=== PATIENT | female | born 1930 | race Caucasian/White ===

== ENCOUNTER 2016-11-15 14:06 | Emergency (ER) | payer MEDICARE, BC ==
[2016-11-15] MEDS ORDERED: SODIUM CHLORIDE 0.9% 500 ML IV STA (14:18)
[2016-11-15] MEDS ORDERED: SODIUM CHLORIDE 0.9% 1,000 ML IV STA (14:18)
--- NOTE | 2016-11-15 14:22 | ED ---
Dizziness HPI - General Source: patient, family, EMS, RN notes reviewed Mode of arrival: EMS - History of Present Illness MD Complaint: dizziness, difficulty walking <Chaka Gandara - Last Filed: 11/15/16 16:54> <Sean Pedraza - Last Filed: 11/15/16 19:50> - General Stated Complaint: multiple falls Time Seen by Provider: 11/15/16 14:16 - History of Present Illness Initial Comments: This 86-year-old female who normally uses a walker walk who fell prior to admission. She is actually had 2 falls last 2 days. She currently had tingling in her walker and did fall. Flush mother passed out per family EMS she did not. She denies any pain at this time fevers chills or sweats family believes she may be dehydrated. Per EMS her glucose was 201 neuro exam was unremarkable. No symptoms cough phlegm production or dysuria. (Chaka Gandara) - Related Data Home Medications Medication Instructions Recorded Confirmed Atorvastatin [Lipitor] 20 mg PO HS 11/15/16 11/15/16 FLUoxetine HCL [PROzac] 10 mg PO DAILY 11/15/16 11/15/16 LORazepam [Ativan] 0.5 mg PO Q6H PRN 11/15/16 11/15/16 Allergies Allergy/AdvReac Type Severity Reaction Status Date / Time No Known Allergies Allergy Verified 11/15/16 15:14 Review of Systems ROS Other: All systems not noted in ROS Statement are negative. <Chaka Gandara - Last Filed: 11/15/16 16:54> ROS Other: All systems not noted in ROS Statement are negative. <Sean Pedraza - Last Filed: 11/15/16 19:50> ROS Statement: Those systems with pertinent positive or pertinent negative responses have been documented in the HPI. General Exam General appearance: alert, in no apparent distress Head exam: Present: atraumatic, normocephalic, normal inspection Eye exam: Present: normal appearance, PERRL, EOMI. Absent: scleral icterus, conjunctival injection, periorbital swelling ENT exam: Present: mucous membranes dry Neck exam: Present: normal inspection. Absent: tenderness, meningismus, lymphadenopathy Respiratory exam: Present: normal lung sounds bilaterally. Absent: respiratory distress, wheezes, rales, rhonchi, stridor Cardiovascular Exam: Present: regular rate, normal rhythm, normal heart sounds. Absent: systolic murmur, diastolic murmur, rubs, gallop, clicks GI/Abdominal exam: Present: soft, normal bowel sounds. Absent: distended, tenderness, guarding, rebound, rigid Extremities exam: Present: normal inspection, full ROM, normal capillary refill. Absent: tenderness, pedal edema, joint swelling, calf tenderness Back exam: Present: normal inspection Neurological exam: Present: alert, oriented X3, CN II-XII intact Psychiatric exam: Present: normal affect, normal mood Skin exam: Present: warm, dry, intact, normal color. Absent: rash <Chaka Gandara - Last Filed: 11/15/16 16:54> General appearance: alert, in no apparent distress Head exam: Present: atraumatic, normocephalic, normal inspection Eye exam: Present: normal appearance, PERRL, EOMI. Absent: scleral icterus, conjunctival injection, periorbital swelling ENT exam: Present: normal exam, mucous membranes moist Neck exam: Present: normal inspection. Absent: tenderness, meningismus, lymphadenopathy Respiratory exam: Present: normal lung sounds bilaterally. Absent: respiratory distress, wheezes, rales, rhonchi, stridor Cardiovascular Exam: Present: regular rate, normal rhythm, normal heart sounds. Absent: systolic murmur, diastolic murmur, rubs, gallop, clicks GI/Abdominal exam: Present: soft, normal bowel sounds. Absent: distended, tenderness, guarding, rebound, rigid Extremities exam: Present: normal inspection, full ROM, normal capillary refill. Absent: tenderness, pedal edema, joint swelling, calf tenderness Back exam: Present: normal inspection Neurological exam: Present: alert, oriented X3, CN II-XII intact Psychiatric exam: Present: normal affect, normal mood Skin exam: Present: warm, dry, intact, normal color. Absent: rash <Sean Pedraza - Last Filed: 11/15/16 19:50> - General Exam Comments Initial Comments: This is a well-developed well-nourished awake alert oriented 3 female (Juliocesar Chaka) Course <Chaka Gandara - Last Filed: 11/15/16 16:54> <Sean Pedraza - Last Filed: 11/15/16 19:50> Vital Signs 11/15/16 11/15/16 11/15/16 14:20 15:46 17:10 Temperature 98.2 F Pulse Rate 72 76 79 Respiratory 18 20 16 Rate Blood Pressure 106/53 172/77 150/65 O2 Sat by Pulse 98 97 98 Oximetry - Reevaluation(s) Reevaluation #1: 11/15/16 16:52 I did a long discussion with the patient and family regarding findings. I did discuss case with family members were concerned the patient is depressed and wants to all time also she has been acting paranoid which is new behavior for her. Family is requesting psychiatric evaluation. This is pending at this time. (Chaka Gandara) Reevaluation #2: 11/15/16 16:54 The patient's care will be endorsed to Dr. Pedraza who will make final disposition (Chaka Gandara) Reevaluation #3: 11/15/16 19:49 Patient medically cleared for evaluation by psychiatry (Sean Pedraza) EKG Findings - EKG Results: EKG: interpreted by ERMD, sinus rhythm (EKG shows a sinus rhythm of 72 NV interval 194 QRS duration 88 QT since QTC of 44/442 low-voltage, nonspecific inferior configuration.) <Chaka Gandara - Last Filed: 11/15/16 16:54> Medical Decision Making - Lab Data Result diagrams: 11/15/16 13:15 11/15/16 13:15 <Cahka Gandara - Last Filed: 11/15/16 16:54> - Lab Data Result diagrams: 11/15/16 13:15 11/15/16 13:15 - Radiology Data Radiology results: report reviewed (CT brain is negative for acute disease), image reviewed <Sean Pedraza - Last Filed: 11/15/16 19:50> - Medical Decision Making A Serafino to ER for evaluation. Patient was brought into ER for evaluation of multiple falls etc. Patient was requesting psychiatric discharge psychiatric evaluation at time of discharge. Patient has been seen by psychiatry, is not homicidal or suicidal, will be discharged home (Sean Pedraza) - Lab Data Lab Results 11/15/16 11/15/16 11/15/16 Range/Units 13:15 13:15 13:15 WBC 8.9 (3.8-10.6) k/uL RBC 4.16 (3.80-5.40) m/uL Hgb 12.9 (11.4-16.0) gm/dL Hct 38.0 (34.0-46.0) % MCV 91.4 (80.0-100.0) fL MCH 30.9 (25.0-35.0) pg MCHC 33.8 (31.0-37.0) g/dL RDW 13.1 (11.5-15.5) % Plt Count 361 (150-450) k/uL Neutrophils % 73 % Lymphocytes % 17 % Monocytes % 7 % Eosinophils % 1 % Basophils % 1 % Neutrophils # 6.5 (1.3-7.7) k/uL Lymphocytes # 1.5 (1.0-4.8) k/uL Monocytes # 0.7 (0-1.0) k/uL Eosinophils # 0.1 (0-0.7) k/uL Basophils # 0.1 (0-0.2) k/uL PT (9.0-12.0) sec INR (<1.1) APTT (22.0-30.0) sec Sodium 138 (137-145) mmol/L Potassium 4.2 (3.5-5.1) mmol/L Chloride 103 (98-107) mmol/L Carbon Dioxide 23 (22-30) mmol/L Anion Gap 12 mmol/L BUN 11 (7-17) mg/dL Creatinine 0.60 (0.52-1.04) mg/dL Est GFR (MDRD) Af Amer >60 (>60 ml/min/1.73 sqM) Est GFR (MDRD) Non-Af >60 (>60 ml/min/1.73 sqM) Glucose 155 H (74-99) mg/dL Calcium 9.7 (8.4-10.2) mg/dL Magnesium 2.0 (1.6-2.3) mg/dL Total Bilirubin 0.7 (0.2-1.3) mg/dL AST 40 H (14-36) U/L ALT 70 H (9-52) U/L Alkaline Phosphatase 272 H (38-126) U/L Ammonia (<30) umol/L Total Creatine Kinase 27 L (30-135) U/L CK-MB (CK-2) 0.5 (0.0-2.4) ng/mL CK-MB (CK-2) Rel Index 1.9 Troponin I <0.012 (0.000-0.034) ng/mL Total Protein 6.7 (6.3-8.2) g/dL Albumin 3.8 (3.5-5.0) g/dL Amylase (30-110) U/L Lipase (23-300) U/L Urine Color Urine Appearance (Clear) Urine pH (5.0-8.0) Ur Specific [place] (1.001-1.035) Urine Protein (Negative) Urine Glucose (UA) (Negative) Urine Ketones (Negative) Urine Blood (Negative) Urine Nitrite (Negative) Urine Bilirubin (Negative) Urine Urobilinogen (<2.0) mg/dL Ur Leukocyte Esterase (Negative) 11/15/16 11/15/16 11/15/16 Range/Units 13:15 13:15 15:36 WBC (3.8-10.6) k/uL RBC (3.80-5.40) m/uL Hgb (11.4-16.0) gm/dL Hct (34.0-46.0) % MCV (80.0-100.0) fL MCH (25.0-35.0) pg MCHC (31.0-37.0) g/dL RDW (11.5-15.5) % Plt Count (150-450) k/uL Neutrophils % % Lymphocytes % % Monocytes % % Eosinophils % % Basophils % % Neutrophils # (1.3-7.7) k/uL Lymphocytes # (1.0-4.8) k/uL Monocytes # (0-1.0) k/uL Eosinophils # (0-0.7) k/uL Basophils # (0-0.2) k/uL PT 10.3 (9.0-12.0) sec INR 1.0 (<1.1) APTT 23.6 (22.0-30.0) sec Sodium (137-145) mmol/L Potassium (3.5-5.1) mmol/L Chloride (98-107) mmol/L Carbon Dioxide (22-30) mmol/L Anion Gap mmol/L BUN (7-17) mg/dL Creatinine (0.52-1.04) mg/dL Est GFR (MDRD) Af Amer (>60 ml/min/1.73 sqM) Est GFR (MDRD) Non-Af (>60 ml/min/1.73 sqM) Glucose (74-99) mg/dL Calcium (8.4-10.2) mg/dL Magnesium (1.6-2.3) mg/dL Total Bilirubin (0.2-1.3) mg/dL AST (14-36) U/L ALT (9-52) U/L Alkaline Phosphatase (38-126) U/L Ammonia (<30) umol/L Total Creatine Kinase (30-135) U/L CK-MB (CK-2) (0.0-2.4) ng/mL CK-MB (CK-2) Rel Index Troponin I (0.000-0.034) ng/mL Total Protein (6.3-8.2) g/dL Albumin (3.5-5.0) g/dL Amylase 41 (30-110) U/L Lipase 128 (23-300) U/L Urine Color Light Yellow Urine Appearance Clear (Clear) Urine pH 7.0 (5.0-8.0) Ur Specific [place] 1.006 (1.001-1.035) Urine Protein Negative (Negative) Urine Glucose (UA) Negative (Negative) Urine Ketones Negative (Negative) Urine Blood Negative (Negative) Urine Nitrite Negative (Negative) Urine Bilirubin Negative (Negative) Urine Urobilinogen <2.0 (<2.0) mg/dL Ur Leukocyte Esterase Negative (Negative) 11/15/16 Range/Units 17:13 WBC (3.8-10.6) k/uL RBC (3.80-5.40) m/uL Hgb (11.4-16.0) gm/dL Hct (34.0-46.0) % MCV (80.0-100.0) fL MCH (25.0-35.0) pg MCHC (31.0-37.0) g/dL RDW (11.5-15.5) % Plt Count (150-450) k/uL Neutrophils % % Lymphocytes % % Monocytes % % Eosinophils % % Basophils % % Neutrophils # (1.3-7.7) k/uL Lymphocytes # (1.0-4.8) k/uL Monocytes # (0-1.0) k/uL Eosinophils # (0-0.7) k/uL Basophils # (0-0.2) k/uL PT (9.0-12.0) sec INR (<1.1) APTT (22.0-30.0) sec Sodium (137-145) mmol/L Potassium (3.5-5.1) mmol/L Chloride (98-107) mmol/L Carbon Dioxide (22-30) mmol/L Anion Gap mmol/L BUN (7-17) mg/dL Creatinine (0.52-1.04) mg/dL Est GFR (MDRD) Af Amer (>60 ml/min/1.73 sqM) Est GFR (MDRD) Non-Af (>60 ml/min/1.73 sqM) Glucose (74-99) mg/dL Calcium (8.4-10.2) mg/dL Magnesium (1.6-2.3) mg/dL Total Bilirubin (0.2-1.3) mg/dL AST (14-36) U/L ALT (9-52) U/L Alkaline Phosphatase (38-126) U/L Ammonia <9 (<30) umol/L Total Creatine Kinase (30-135) U/L CK-MB (CK-2) (0.0-2.4) ng/mL CK-MB (CK-2) Rel Index Troponin I (0.000-0.034) ng/mL Total Protein (6.3-8.2) g/dL Albumin (3.5-5.0) g/dL Amylase (30-110) U/L Lipase (23-300) U/L Urine Color Urine Appearance (Clear) Urine pH (5.0-8.0) Ur Specific [place] (1.001-1.035) Urine Protein (Negative) Urine Glucose (UA) (Negative) Urine Ketones (Negative) Urine Blood (Negative) Urine Nitrite (Negative) Urine Bilirubin (Negative) Urine Urobilinogen (<2.0) mg/dL Ur Leukocyte Esterase (Negative) Disposition <Chaka Gandara - Last Filed: 11/15/16 16:54> <Sean Pedraza - Last Filed: 11/15/16 19:50> Clinical Impression: Falls, Depression Disposition: ADMITTED IP TO THIS HOSP Condition: Fair Instructions: Depression (ED), Fall Prevention for Older Adults (ED) Referrals: Neida Smith MD [Primary Care Provider] - 1-2 days
--- NOTE | 2016-11-15 14:38 | XR ---
EXAMINATION TYPE: XR chest 2V DATE OF EXAM: 11/15/2016 COMPARISON: NONE HISTORY: Shortness of breath TECHNIQUE: Frontal and lateral views of the chest are obtained. FINDINGS: Scattered senescent parenchymal changes noted. Hyperinflation compatible with COPD. No evidence for infiltrate. No evidence for atelectasis. Heart size is stable. Mediastinal structures are stable and grossly unremarkable. No evidence for hilar prominence. Degenerative changes dorsal spine. IMPRESSION: 1. No evidence for acute pulmonary disease.
[2016-11-15 14:42] LABS: Basophils # (A) 0.1 k/uL (0-0.2); Basophils % (A) 1 %; CH 31.9; Eosinophils # (A) 0.1 k/uL (0-0.7); Eosinophils % (A) 1 %; HDW 2.37; HGB 12.9 gm/dL (11.4-16.0); Luc # (Auto) 0.16; Luc % (Auto) 2; Lymphocytes # (A) 1.5 k/uL (1.0-4.8); Lymphocytes % (A) 17 %; MCH 30.9 pg (25.0-35.0); MCHC 33.8 g/dL (31.0-37.0); MCV 91.4 fL (80.0-100.0); Mean Platelet Volume 7.8; Monocytes # (A) 0.7 k/uL (0-1.0); Monocytes % (A) 7 %; Neutrophils # (A) 6.5 k/uL (1.3-7.7); Neutrophils % (A) 73 %; RBC 4.16 m/uL (3.80-5.40); RDW 13.1 % (11.5-15.5); WBC 8.9 k/uL (3.8-10.6); WBC (Perox) 8.36
[2016-11-15 14:51] LABS: ALT 70 U/L (9-52); AST 40 U/L (14-36); Alkaline Phosphatase 272 U/L (38-126); Anion Gap 12 mmol/L; Blood Urea Nitrogen 11 mg/dL (7-17); Calcium 9.7 mg/dL (8.4-10.2); Carbon Dioxide 23 mmol/L (22-30); Chloride 103 mmol/L (98-107); Glucose 155 mg/dL (74-99); Non-African American GFR(MDRD) >60 (>60 ml/min/1.73 sqM); Potassium 4.2 mmol/L (3.5-5.1); Sodium 138 mmol/L (137-145); Total Bilirubin 0.7 mg/dL (0.2-1.3); Total Protein 6.7 g/dL (6.3-8.2)
[2016-11-15 14:59] LABS: Partial Thromboplastin Time 23.6 sec (22.0-30.0); Prothrombin Time 10.3 sec (9.0-12.0)
[2016-11-15 15:01] LABS: Creatine Kinase 27 U/L (30-135)
[2016-11-15 15:14] LABS: Creatine Kinase MB 0.5 ng/mL (0.0-2.4); Troponin I <0.012 ng/mL (0.000-0.034)
[2016-11-15 15:52] LABS: Appearance,Urine Clear (Clear); Bilirubin,Urine Negative (Negative); Glucose,Urine (UA) Negative (Negative); Ketones,Urine Negative (Negative); Leukocyte Esterase,Urine Negative (Negative); Nitrite,Urine Negative (Negative); Protein,Urine Negative (Negative); Specific Gravity,Urine 1.006 (1.001-1.035); UA Billing (MACRO vs. MICRO) CHEM; Urobilinogen,Urine <2.0 mg/dL (<2.0)
[2016-11-15 15:56] LABS: Amylase 41 U/L (30-110)
[2016-11-15 17:12] VITALS: RESP 16
--- NOTE | 2016-11-15 17:52 | CT ---
EXAMINATION TYPE: CT brain wo con DATE OF EXAM: 11/15/2016 COMPARISON: NONE HISTORY: Patient complains of recent falls. CT DLP: 782.6 mGycm Automated exposure control for dose reduction was used. FINDINGS: There is cerebral cortical atrophy. There is patchy hypodensity in the periventricular white matter. There is hypodensity in the white matter and aiken matter in particular in the right frontal lobe. Doroteo varium is intact. There is no evidence of intracranial hemorrhage. IMPRESSION: CEREBRAL ATROPHY AND CHRONIC SMALL VESSEL ISCHEMIA. OLD SMALL RIGHT POSTERIOR FRONTAL LOBE CORTICAL I NFARCT. NO ACUTE INTRACRANIAL ABNORMALITY.
[2016-11-15 21:20] VITALS: BP 168/70; PULSE 80; TEMP 98.5
== END 2016-11-15 21:19 | disposition home or self-care (01) ==
LOC: EC 14:06
DX: F32.9 Major depressive disorder, single episode, unspecified (principal); R42 Dizziness and giddiness; R26.2 Difficulty in walking, not elsewhere classified; R20.2 Paresthesia of skin; Z79.899 Other long term (current) drug therapy; W18.30XA Fall on same level, unspecified, initial encounter
CPT/HCPCS: 36415; 70450; 71020; 80053; 81003; 82140; 82150; 82550; 82553; 83690; 83735; 84484; 85025; 85610; 85730; 93005; 96360; 96361; 99285

== ENCOUNTER 2017-12-22 12:28 | Emergency (ER) | payer MEDICARE, BC ==
[2017-12-22 12:44] VITALS: RESP 18
--- NOTE | 2017-12-22 13:05 | ED ---
General Adult HPI - General Chief complaint: Fall Stated complaint: Fall Time Seen by Provider: 12/22/17 12:31 Source: patient, EMS, RN notes reviewed Mode of arrival: EMS Limitations: no limitations - History of Present Illness Initial comments: Patient 87-year-old female presented to the emergency room today by EMS, the chief complaint of a fall that occurred last night. Patient does admit that she was walking back into her apartment. She states she did not have her walker at the time and she lost her balance falling down hitting left side of her head. She states she fell on carpet. Does admit to some bruising above the left eye. She states it was no loss of consciousness. She does admit to some mild neck pain today with a headache. Denies any other complaints. Patient denies any recent fever, chills, shortness of breath, chest pain, back pain, abdominal pain, nausea or vomiting, constipation or diarrhea, headaches or visual changes, or any other complaints. - Related Data Home Medications Medication Instructions Recorded Confirmed Atorvastatin [Lipitor] 20 mg PO HS 11/15/16 11/15/16 FLUoxetine HCL [PROzac] 10 mg PO DAILY 11/15/16 11/15/16 LORazepam [Ativan] 0.5 mg PO Q6H PRN 11/15/16 11/15/16 Allergies Allergy/AdvReac Type Severity Reaction Status Date / Time No Known Allergies Allergy Verified 12/22/17 12:44 Review of Systems ROS Statement: Those systems with pertinent positive or pertinent negative responses have been documented in the HPI. ROS Other: All systems not noted in ROS Statement are negative. Past Medical History Past Medical History: Dementia Additional Past Medical History / Comment(s): Stroke History of Any Multi-Drug Resistant Organisms: None Reported Past Surgical History: No Surgical Hx Reported Past Psychological History: No Psychological Hx Reported Smoking Status: Never smoker Past Alcohol Use History: None Reported Past Drug Use History: None Reported General Exam - General Exam Comments Initial Comments: General: The patient is awake and alert, in no distress, and does not appear acutely ill. Eye: Pupils are equal, round and reactive to light, extra-ocular movements are intact. No nystagmus. There is normal conjunctiva bilaterally. No signs of icterus. Ears, nose, mouth and throat: There are moist mucous membranes and no oral lesions. Neck: The neck is supple, there is no tenderness or JVD. Cardiovascular: There is a regular rate and rhythm. No murmur, rub or gallop is appreciated. Respiratory: Lungs are clear to auscultation, respirations are non-labored, breath sounds are equal. No wheezes, stridor, rales, or rhonchi. Musculoskeletal: Normal ROM. Patient has normal appearance of cervical, thoracic, lumbar spine Strength 5/5. Sensation intact. Pulses equal bilaterally 2+. Neurological: A&O x 3. CN II-XII intact, There are no obvious motor or sensory deficits. Coordination appears grossly intact. Speech is normal. Skin: Skin is warm and dry and no rashes or lesions are noted. Psychiatric: Cooperative, appropriate mood & affect, normal judgment. Limitations: no limitations Course Vital Signs 12/22/17 12:40 Temperature 98.4 F Pulse Rate 74 Respiratory 18 Rate Blood Pressure 183/87 O2 Sat by Pulse 96 Oximetry Medical Decision Making - Medical Decision Making Patient's CAT scan is negative for any acute abnormalities. Results were discussed with the patient. Patient will be discharged home. Disposition Clinical Impression: Fall, Facial contusion Disposition: HOME SELF-CARE Condition: Good Instructions: Contusion in Adults (ED) Additional Instructions: Please follow-up with family doctor in the next 2 days of symptoms have not improved. Please return to emergency room if the symptoms increase or worsen or for any other concerns. Is patient prescribed a controlled substance at d/c from ED?: No Referrals: Wei Shea MD [Primary Care Provider] - 1-2 days Time of Disposition: 14:12
--- NOTE | 2017-12-22 14:04 | CT ---
EXAMINATION TYPE: CT brain julee lanza DATE OF EXAM: 12/22/2017 COMPARISON: 11/15/2016 HISTORY: pain CT DLP: 1003.7 mGycm, Automated exposure control for dose reduction was used. CONTRAST: Patient injected with 0 mL of Isovue 300. CT of the brain is performed utilizing 3 mm thick sections through the posterior fossa and 3 mm thick sections through the remaining calvarium. Study is performed within 24 hours of arrival to the hospital. No abnormal hyperdensity is present to suggest an acute intracranial hemorrhage. No mass lesion is evident. No acute infarcts are evident. Periventricular white matter hypodensity is present, likely on the ba sis of chronic white matter ischemic changes. 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 T his was present previously. Findings are stable. Ventricles and sulci are mildly prominent for the patient age. Paranasal sinuses and mastoid air cells within the [id number] are clear. There is soft tissue thickening along the left frontal region. IMPRESSIONS: 1. Atrophy with periventricular white matter ischemic changes, stable from prior study. 2. Soft tissue swelling left frontal region CT cervical spine. COMPARISON: None CT of the cervical spine is performed in the axial plane at 2 mm thick sections. Reconstructed image s in the coronal, and sagittal plane are reviewed on the computer. No acute fractures are evident. Vertebral body alignment has slight kyphosis centered at C3-4. 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 Degenerative disc changes are present C5-6 C6-7 C7-T1. Posterior endplate spur ring is present C5-6 C6-7. No spinal canal stenosis is evident. Severe left foraminal stenosis due to uncovertebral joint hypertrophy is present C3-4. Uncovertebral joint hypertrophy and endplate spurring at C5-6 has mild foraminal narrowing and mild anterior thecal sac impression. There is a central spur at C6-7 with mild anterior thecal sac compression. No AP spi nal canal stenosis is present. Lung apices within the [id number] are unremarkable. IMPRESSIONS: 1. No acute osseous abnormality. 2. Degenerative disc changes. 3. 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 4. Uncovertebral joint hypertrophy contributing to severe foraminal stenosis, greatest at C3-4 on the left.
[2017-12-22 14:44] VITALS: BP 185/80; PULSE 70; TEMP 98.5
== END 2017-12-22 14:43 | disposition home or self-care (01) ==
LOC: EC 12:28
DX: S00.83XA Contusion of other part of head, initial encounter (principal); M54.2 Cervicalgia; Z79.899 Other long term (current) drug therapy; Z86.73 Personal history of transient ischemic attack (TIA), and cerebral infarction without residual deficits; W19.XXXA Unspecified fall, initial encounter; Y93.01 Activity, walking, marching and hiking; Y92.009 Unspecified place in unspecified non-institutional (private) residence as the place of occurrence of the external cause
CPT/HCPCS: 70450; 72125; 99284